=== PATIENT | female | born 1990 | race Caucasian/White ===

== ENCOUNTER 2016-09-10 10:00 | Inpatient (IN) ==
[2016-09-10] MEDS ORDERED: Metoclopramide 10 MG/2 ML VIAL IVP PRN (10:22)
[2016-09-10] MEDS ORDERED: Famotidine 20 MG/2 ML VIAL IVP PRN (10:22)
[2016-09-10] MEDS ORDERED: Ondansetron 4 MG/2 ML VIAL IVP PRN ×2 (10:22→11:58)
[2016-09-10] MEDS ORDERED: Naloxone 0.4 MG/ML INJ IVP PRN ×2 (10:22→11:58)
[2016-09-10 10:51] LABS: Basophils % 0.1 %; Eosinophils # 0.1 K/mcL (0.0-0.6); Eosinophils % 0.3 %; Hematocrit 32.1 % (35.3-44.9); Hemoglobin 10.4 g/dL (11.5-15.4); Immature Granulocytes % 0.5 % (0-4); Immature Platelets 2.6 % (1.1-6.1); Lymphocytes # 1.7 K/mcL (0.6-4.6); Lymphocytes % 10.1 %; Mean Corpuscular HGB Conc 32.4 g/dL (31.6-35.5); Mean Corpuscular Hemoglobin 27.8 pg (28.0-33.3); Mean Corpuscular Volume 85.8 fL (83.0-100.0); Mean Platelet Volume 9.2 fL (9.4-12.4); Monocytes # 0.8 K/mcL (0.0-1.3); Monocytes % 4.4 %; Neutrophils # 14.5 K/mcL (1.6-8.9); Platelet Count 347 K/mcL (140-400); Red Blood Count 3.74 M/mcL (3.82-4.97); Red Cell Distribution Width 13.8 % (11.5-14.5); Segmented Neutrophils % 84.6 %
[2016-09-10] MEDS ORDERED: Ringers Solution, Lactated 1,000 ML ONE (10:56)
[2016-09-10] MEDS: Ringers Solution, Lactated 1,000 ML IVC SCH ×2 (11:00→17:09)
[2016-09-10] MEDS: Oxytocin 20 units/ LR 1000 mL 20 UNIT/1,000 ML BAG IVC SCH ×2 (11:01→20:05)
[2016-09-10] MEDS ORDERED: *HR* FentaNYL (PF) 100 MCG/2 ML VIAL EP ONE (11:58)
[2016-09-10] MEDS ORDERED: EPHEDrine 50 MG/ML VIAL IVP PRN (11:58)
[2016-09-10] MEDS ORDERED: Bupivacaine-MPF 0.25% 10 ML VIAL EP ONE (11:58)
--- NOTE | 2016-09-10 11:59 | OB/GYN History & Physical ---
Date of Encounter: 09/10/16 Time of Encounter: 11:43 Assessment and Plan (1) Elective induction of labor planned Current visit: Yes Status: Acute Admit for IOL. Pitocin for induction. Epidural when requested. SSE after epidural. AROM when able. Anticipate . (2) 39 weeks gestation of Current visit: Yes Status: Acute (3) Hx of herpes genitalis Current visit: Yes Status: Acute (4) Obesity affecting Current visit: Yes Status: Acute (5) Mitral valve prolapse Current visit: Yes Status: Acute History of Present Illness Chief complaint: IOL HPI: Ms. Pop is a 25 year old female presenting for elective IOL at 39 weeks and 2 days. This has been complicated by obesity, mitral valve prolapse, THC use, and hx of HSV. She denies sores or tingling suggestive of HSV outbreak. Good FM. No complaints today. Past Med Surg Social Fam HX - Past Medical History Medical history: non-contributory Psychiatric history: no psych history - Past Surgical History Surgical History: no surgical history - Social History Smoking Status: Current every day smoker Smokeless Tobacco Status: No Alcohol use: none Drug use: none - Family History Mother History Unknown: Yes Family Member Ethnicity: Non- Living Status: Still Living Obstetrical History - Pregnancies : 4 Para: 2 Ab's: 1 Livin Medications and Allergies Albuterol Sulfate [Albuterol Inhaler] 2 puff IH QID 2 Days 07/24/15 [Rx] Azithromycin [Azithromycin 6-Tab Pack] 250 mg PO DAILY #6 tab 07/24/15 [Rx] GuaiFENesin/Codeine [Robitussin w/Codeine] 5 ml PO Q6HR PRN #120 ml 07/24/15 [Rx ] MethylPREDNISolone [Medrol] 4 mg PO DAILY 6 Days 07/24/15 [Rx] Naproxen [Naprosyn] 500 mg PO BID 3 Days 07/24/15 [Rx] Allergies No Known Allergies Allergy (Verified 07/24/15 10:19) Review of System OB All systems PM: reviewed and no additional remarkable complaints except as stated Exam - Constitutional Constitutional: well developed, well nourished, no acute distress, obese - HEENT HEENT: Mucus Membranes Moist - Lungs Respiratory exam: CTAB - Cardiovascular Cardiovascular exam: RRR, +S1, +S2 - Abdomen Abdomen: Present: gravid, non tender - Extremities Extremities exam: normal inspection - Vulva Vulva: bilateral: normal - Vagina Vagina: Present: normal moisture - Cervix Dilation: 4 (4-5 per RN) - Uterus Uterus exam: Present: normal size (EFW 8 lbs by cesar) - Anus/Rectum Anus/Rectum: Present: normal perianal skin - Comments Comments: Will confirm no lesions with SSE once epidural placed and prior to ROM. Results Result Diagrams: 09/10/16 10:40 Abnormal lab results WBC 17.2 K/mcL (4.3-11.1) H 09/10/16 10:40 RBC 3.74 M/mcL (3.82-4.97) L 09/10/16 10:40 Hgb 10.4 g/dL (11.5-15.4) L 09/10/16 10:40 Hct 32.1 % (35.3-44.9) L 09/10/16 10:40 MCH 27.8 pg (28.0-33.3) L 09/10/16 10:40 MPV 9.2 fL (9.4-12.4) L 09/10/16 10:40 Neutrophils # 14.5 K/mcL (1.6-8.9) H 09/10/16 10:40 All other labs normal. - VTE Reasons for not Prescribing Prophylaxis: Treatment not Indicated - Low risk for VTE
[2016-09-10] MEDS ORDERED: Epidural Premix (fent/bupiv) 110 ML EP SCH (12:00)
--- NOTE | 2016-09-10 12:02 | Anesthesia Evaluation PreOp ---
Date of Encounter: 09/10/16 Time of Encounter: 12:00 - Past History Planned Operation: ROGER Cardiac History: Other (Mitral valve prolapse with systolic murmur. Otherwise asymptomatic) Pulmonary History: Former smoker (1/2 pk/day x 2 years, quit 2 months ago) CHERRY GROWER History: Denies Any Significant HX Other Medical History: Denies Any Significant HX Anesthesia History: No Prior Anesthetic Complications, Past Anesthesia ( tonsillectomy) : Yes Alcohol Use: none Drug use: none Medications and Allergies Albuterol Sulfate [Albuterol Inhaler] 2 puff IH QID 2 Days 07/24/15 [Rx] Azithromycin [Azithromycin 6-Tab Pack] 250 mg PO DAILY #6 tab 07/24/15 [Rx] GuaiFENesin/Codeine [Robitussin w/Codeine] 5 ml PO Q6HR PRN #120 ml 07/24/15 [Rx ] MethylPREDNISolone [Medrol] 4 mg PO DAILY 6 Days 07/24/15 [Rx] Naproxen [Naprosyn] 500 mg PO BID 3 Days 07/24/15 [Rx] Allergies No Known Allergies Allergy (Verified 07/24/15 10:19) - Meds/Allergy Pre-op Review Medications Reviewed: Yes Allergies Reviewed: Yes Beta Blockers on Current Med List: No Anesthesia Results - Labs 09/10/16 10:40 Anesthesia Exam BP 119/58 R14 P 100 T 97.3 Height: 5"8" Weight: 116.9kg NPO (# of Hours): 3 Pain Scale: 0 Pain Scale Used: Numeric (1 - 10) - HEENT Pupil (Motor): Pupils equal Mallampati: II Teeth: Normal Oral Opening: Greater than 3 - CHERRY GROWER CHERRY GROWER Motor: Normal RUE, Normal LUE, Normal RLE, Normal LLE, Normal Face CHERRY GROWER Sensory: Normal: RUE, LUE, RLE, LLE, Face - Cardiac Rhythm: Regular Murmur: Systolic JVD: No Carotid Bruit: No - Pulmonary Breath Sounds: bilateral Clear Respiratory Effort: Symmetrical Anesthesia Assess/Plan ASA Score: 2 Modified [place] Scale for Level of Consciousness: Cooperative, oriented, and tranquil Anesthetic Plan: Regional Autologous Blood: No Monitoring Plan: Standard Monitors Recovery Plan: Other
[2016-09-10] MEDS ORDERED: Bupivacaine-MPF 0.25% 10 ML VIAL ONE (12:17)
[2016-09-10] MEDS ORDERED: *HR* FentaNYL (PF) 100 MCG/2 ML VIAL ONE (12:17)
[2016-09-10] MEDS ORDERED: Epidural Premix (fent/bupiv) 110 ML EP ONE (12:17)
--- NOTE | 2016-09-10 14:35 | OB Labor Progress Note ---
Date of Encounter: 09/10/16 Time of Encounter: 14:33 Labor Progress Note - Subjective Subjective: Pt comfortable with epidural. - Cervix Cervix: 5/80/-1 - Heart Tones Heart Tones: Category I - [place]: irregular - Interventions Interventions: SSE confirms no HSV lesions. AROM for large amount clear fluid. IUPC placed. - Plan Plan: Continue to titrate pitocin for adequate labor. Anticipate .
--- NOTE | 2016-09-10 15:04 | Anesthesia Procedures ---
Date of Encounter: 09/10/16 Time of Encounter: 13:45 Procedures: Anesthesia - Epidural/Spinal Patient ID/Chart reviewed: Yes Patient examined: Yes OB Eval: Gestational age: 39 OB Eval: : 4 OB Eval: Hx Para: 2 OB Eval: Dilated at (cm): 4 OB Eval: Contractions: Non-stressed pattern Consent Obtained: Yes Supplemental Oxygen: None/Room Air Site Prep: Aseptic Technique, Sterile prep and drape, Povidone-Iodine 1% Patient position: upright Local Anesthetic: Lidocaine 1% Amount of Local Anesthetic used: 3 Touhy Needle Gauge: 18 Touhy Needle Depth (cm): 7 Catheter Depth at Skin (cm): 16 Test Dose (1.5% Lido + Epi): Volume given (mls): 3 Test Dose Result: Negative Loading Dose: 0.25% Marcaine (mls): 10 Loading Dose: Fentanyl (mcg): 100 Loading Dose Administered: Thru Catheter Infusion Med: 0.125% Bupivacaine w/ 2 mcg/ml Fentanyl Infusion Rate (mls/hr): [address]: Tegaderm, Tape Interspace Used: L4-L5 Loss of Resistance (JULIA): Yes Blood: No CSF: No Paresthesia: No Procedure: ROGER placed in upright position 1st pass without any immediate noted complications. VSS and FHT stable throughout. Vitals + FHT's: 1345 BP 117/62 P 85 R 14 1416 BP 107/51 P 101 R 14 FHT 130s
--- NOTE | 2016-09-10 16:50 | OB Labor Progress Note ---
Date of Encounter: 09/10/16 Time of Encounter: 16:48 Labor Progress Note - Subjective Subjective: Patient resting on Left side. Pitocin at 10 millunits. Patient reports intermittent pressure. - Cervix Cervix: 6cm per RN - Heart Tones Heart Tones: 115 bpm moderate variability +15x15 accels no decels noted. - [place]: 2-3 min apart - Interventions Interventions: SVE per RN - Plan Plan: Continue labor management.
--- NOTE | 2016-09-10 18:02 | OB/GYN Procedure Note ---
Delivery - Delivery Date: 09/10/16 Provider: Audrey Murdock Intrapartum events: none Delivery induction: AROM, oxytocin Delivery monitor: external FHT, external uterine, internal uterine Anesthesia: epidural Estimated Blood Loss: 200 - (s) A Delivery Date: 09/10/16 Delivery Time: 17:33 Presentation: vertex Position: VINCENZO Route of delivery: Gender: Male Viability: Viable Pounds: 8 Ounces: 13 Weight Gram: 3985 kg at 1 minute: 5 at 5 mins: 9 at 10 mins: 9 Shoulder Dystocia: encountered Shoulder Dystocia Maneuvers: Annette maneuver, suprapubic pressure Shoulder dystocia time elapsed: 45 Specimens collected: cord blood Cord: nuchal cord (x2), 3 umbilical vessels, nuchal reduced - Repair Episiotomy: none Laceration Description: Superficial (perineal ) - Complications Delivery complications: none - Disposition Mom disposition: stable in LDR [place] disposition: stable in LDR - Comments Comments: Called to LDR patient reports she needs to push. Patient placed in stirrups and perineum was prepped. Patient began to push with contractions head presented in FERNANDO and rotated to OP and back to VINCENZO. Tight nuchal reduced x2. Patient unable to push out shoulders at this time. Patient placed in Annette without success so RN proceeded with Suprapubic. Shoulder delivered. placed on maternal abdomen. Cord was clamped and cut. Infant taken to warmer for assessment. There was no interventions needed for . Perineum had a superficial laceration that was hemastatic and did not require repair. returned to mother for skin to skin. Both mother and infant are stable in recovery.
[2016-09-10] MEDS ORDERED: Acetaminophen 325 MG TABLET PO PRN (22:23)
[2016-09-10] MEDS ORDERED: Oxytocin 20 units/ LR 1000 mL 20 UNIT/1,000 ML BAG IVC ONE (22:23)
[2016-09-10] MEDS ORDERED: Lanolin 7 G OINT...G. TP PRN (22:23)
[2016-09-10] MEDS ORDERED: Oxytocin 20 units/ LR 1000 mL 20 UNIT/1,000 ML BAG IV SCH (22:23)
[2016-09-10] MEDS ORDERED: *HR* HYDROcodone/Acet 5/325 mg TABLET PO PRN (22:23)
[2016-09-11] MEDS: Ibuprofen 600 MG TABLET PO PRN ×2 (05:53→13:17)
[2016-09-11] MEDS ORDERED: Prenatal Vit/FA 1 EACH TABLET PO SCH (09:00)
--- NOTE | 2016-09-11 13:37 | Discharge Summary ---
Date of Encounter: 09/11/16 Time of Encounter: 13:34 - Discharge Diagnosis (1) Hx of herpes genitalis Priority: Secondary Status: Acute (2) Obesity affecting Priority: Secondary Status: Acute (3) Mitral valve prolapse Priority: Secondary Status: Acute (4) (normal spontaneous vaginal delivery) Priority: Primary Status: Acute Comments: Pt meeting milestones. - Discharge Medications Prescriptions: Ibuprofen [Motrin] 600 mg PO Q6HR PRN #60 tablet PRN Reason: Cramping Breast Pump [BREAST PUMP] 1 each .ROUTE AD #1 each Docusate [Colace] 100 mg PO BID #60 capsule Home Medications: Albuterol Sulfate [Albuterol Inhaler] 2 puff IH QID 2 Days 07/24/15 [Rx] Azithromycin [Azithromycin 6-Tab Pack] 250 mg PO DAILY #6 tab 07/24/15 [Rx] Breast Pump [BREAST PUMP] 1 each .ROUTE AD #1 each 09/11/16 [Rx] Docusate [Colace] 100 mg PO BID #60 capsule 09/11/16 [Rx] Ibuprofen [Motrin] 600 mg PO Q6HR PRN #60 tablet 09/11/16 [Rx] Lanolin [Lansinoh] 1 appl TP TID PRN #0 oint...g. 09/11/16 [Rx] Vit/FA 1 each PO DAILY tablet 09/11/16 [Rx] Allergies/Adverse Reactions: Allergies No Known Allergies Allergy (Verified 07/24/15 10:19) Data Procedures and tests throughout hospitalization: Laboratory Tests 09/10/16 10:40 WBC 17.2 H RBC 3.74 L Hgb 10.4 L Hct 32.1 L MCV 85.8 MCH 27.8 L MCHC 32.4 RDW 13.8 Plt Count 347 MPV 9.2 L Immature Gran % 0.5 Seg Neutrophils % 84.6 Lymphocytes % 10.1 Monocytes % 4.4 Eosinophils % 0.3 Basophils % 0.1 Neutrophils # 14.5 H Lymphocytes # 1.7 Monocytes # 0.8 Eosinophils # 0.1 Basophils # 0.0 Immature Plt Fraction 2.6 Date of admission: 09/10/16 10:08 Primary care physician: PCP NO Consults: 09/10/16 22:23 Consult to Maintenance Specialist [CONS] Routine Comment: Vaginal delivery, consult needed Consult to Manager Therapy [CONS] Routine Reason for SW Consult: cord stat Discharging clinician: Karen Ambriz Anticipated date of discharge: 09/11/16 - Patient Status Disposition: Home, Self-Care Condition: Good Functional capacity at discharge: independent ambulation Overall status at discharge: patient is progressing back to baseline - Discharge Instructions Follow Up With: NO,PCP [Primary Care Provider] - Audrey Murdock, CNM [Advanced Practice Nurse] - - Diet and Activity Activity: increase activity as tolerated Diet: advance to your usual diet Hospital Course Reason for admission: induction of labor Delivery: Episiotomy: none Laceration: none Other procedures: none complications: none Discharge diagnosis: IUP at term delivered baby: male Hospital course: - Delivery Date: 09/10/16 Provider: Audrey Murdock Intrapartum events: none Delivery induction: AROM, oxytocin Delivery monitor: external FHT, external uterine, internal uterine Anesthesia: epidural Estimated Blood Loss: 200 - (s) Infant A Infant Delivery Date: 09/10/16 Infant Delivery Time: 17:33 Presentation: vertex Position: VINCENZO Route of delivery: Gender: Male Viability: Viable Pounds: 8 Ounces: 13 Weight Gram: 3985 kg at 1 minute: 5 at 5 mins: 9 at 10 mins: 9 Shoulder Dystocia: encountered Shoulder Dystocia Maneuvers: Annette maneuver, suprapubic pressure Shoulder dystocia time elapsed: 45 Specimens collected: cord blood Cord: nuchal cord (x2), 3 umbilical vessels, nuchal reduced - Repair Episiotomy: none Laceration Description: Superficial (perineal ) - Complications Delivery complications: none - Disposition Mom disposition: home PPD#1 [place] disposition: in nursery for observation x 3 days, . Time Attestation: Total time spent providing and/or coordinating discharge services: Time Spent: Less than 30 minutes Exam - Constitutional Vitals: Temp Pulse Resp BP Pulse Ox 98.7 F 77 18 114/68 95 09/11/16 08:01 09/11/16 08:01 09/11/16 08:01 09/11/16 08:01 09/11/16 08:01 General appearance IM: A&O X 3, pleasant, no acute distress - Respiratory Respiratory exam: Present: CTAB - Cardiovascular Cardiovascular exam IM: Present: RRR, +S1, +S2 - GI/Abdominal GI/Abdominal exam IM: soft - Rectal Rectal exam: deferred - Uterine Tone: Firm Uterus Position: At Umbilicus - Extremities Exam Extremities exam IM: Present: normal inspection, pedal edema (mild) - Neurological Exam Neurological exam: normal gait, oriented X3 - Psychiatric Additional comments: reports good mood
[2016-09-11 15:37] VITALS: BP 101/54
== END 2016-09-11 17:20 | disposition home or self-care (01) | DRG 560 ==
LOC: 1NENULAB 10:08 → 1NENUOBS 21:03
PROVIDERS: ADMIT Advanced Practice Midwife; ATTEND Advanced Practice Midwife

== ENCOUNTER 2016-12-15 09:47 | Observation (INO) ==
[2016-12-15] MEDS ORDERED: 0.9 % Sodium Chloride 1,000 ML IVC ONE (11:13)
[2016-12-15] MEDS ORDERED: Ondansetron 4 MG/2 ML VIAL IVP ONE (11:13)
[2016-12-15] MEDS ORDERED: Ketorolac 30 MG/ML VIAL IVP ONE (11:13)
--- NOTE | 2016-12-15 11:16 | Emergency Department Note ---
Disposition Clinical Impression: Acute cholecystitis Disposition: Admitted As Inpatient Condition: Fair Referrals: NO,PCP [Primary Care Provider] - Forms: Work/School Release, ED Satisfaction Letter Time of Disposition: 12:52 Abdominal Pain HPI - General Chief Complaint: ED Abdominal Pain Stated Complaint: RUQ Pain Time Seen by Provider: 12/15/16 11:08 Source: patient Limitations: no limitations Nursing Notes Reviewed: Yes Vital Signs Reviewed: Yes - History of Present Illness HPI Narrative: Patient emergency department with right-sided abdominal pain. Onset 1 week ago. She describes the pain as being dull but it became sharp and it sounded 10 last PM. Unaffected by food. No vomiting or change in bowel habits. No fever. Pt Subjective Complaint: abdominal pain Pain Scale: 9 Quality: stabbing - Related Data Previous Rx's Medication Instructions Recorded Albuterol Sulfate [Albuterol 2 puff IH QID 2 Days 07/24/15 Inhaler] Azithromycin [Azithromycin 6-Tab 250 mg PO DAILY #6 tab 07/24/15 Pack] Breast Pump [BREAST PUMP] 1 each .ROUTE AD #1 each 09/11/16 Docusate [Colace] 100 mg PO BID #60 capsule 09/11/16 Ibuprofen [Motrin] 600 mg PO Q6HR PRN #60 tablet 09/11/16 Lanolin [Lansinoh] 1 appl TP TID PRN #0 oint...g. 09/11/16 Vit/FA 1 each PO DAILY tablet 09/11/16 Allergies Allergy/AdvReac Type Severity Reaction Status Date / Time No Known Allergies Allergy Verified 12/15/16 09:52 All systems ED: reviewed and negative except as stated. Constitutional: Denies: fever Cardiovascular: Denies: chest pain Respiratory: Reports: other (Sedated deep breath). Denies: dyspnea Gastrointestinal: Reports: abdominal pain. Denies: nausea, vomiting, diarrhea Abdominal Pain PMH - Past Medical History Medical history: Reports: other Female Surgical History: Reports: Tonsillectomy ASSISTANT MEDIA PLANNER history: Reports: no ASSISTANT MEDIA PLANNER history Psychiatric history: Reports: anxiety - Social History Smoking status: Current every day smoker Alcohol use: Reports: none Drug use: Reports: none Physical Exam Patient with tenderness over the right flank and right upper abdomen. No tenderness over the ribs. No rash. No guarding. She is nontoxic appearing with stable vital signs. - General Limitations: no limitations General appearance: alert, in no apparent distress - Head Head exam: atraumatic - Eye Eye exam: Present: normal appearance, PERRL - ENT ENT exam: normal exam, normal oropharynx - Neck Neck exam: Present: normal inspection - Chest Chest inspection: Present: normal inspection - Respiratory Respiratory exam: Present: normal lung sounds bilaterally - Cardiovascular Cardiovascular exam: Present: regular rate, normal rhythm, normal heart sounds - Abdominal Exam Abdominal exam: Present: soft. Absent: tenderness - Neurological Exam Neurological exam: Present: alert, oriented X3 - Psychiatric Psychiatric exam: Present: normal affect - Skin Skin exam: Present: warm, dry, intact Course Course Narrative: Patient with tenderness under the rib cage. Lungs clear. No chest pain. She does have a Nexplanon. We will check a d-dimer and EKG. - Reevaluation(s) Reevaluation #1: Ultrasound shows likely an early cholecystitis. We will discuss with surgery. Patient is still uncomfortable. Ordering morphine. Time: 12:48 - Consultations Consultation #1: Dr Hill accepts. PT informed by myself to remain NPO Time: 12:52 Vital Signs Temperature 98.2 F 12/15/16 09:52 Pulse Rate 80 12/15/16 09:52 Respiratory Rate 18 12/15/16 09:52 Blood Pressure 116/67 12/15/16 09:52 O2 Sat by Pulse Oximetry 98 12/15/16 09:52 Temperature 98.2 F 12/15/16 09:52 Pulse Rate 80 12/15/16 09:52 Respiratory Rate 18 12/15/16 09:52 Blood Pressure 116/67 12/15/16 09:52 O2 Sat by Pulse Oximetry 98 12/15/16 09:52 Oxygen Delivery Oxygen Delivery Room Air Abdominal Pain - Lab Data Result diagrams: 12/15/16 11:22 12/15/16 11:22 Lab Results 12/15/16 12/15/16 Range/Units 11:22 11:22 WBC 14.9 H (4.3-11.1) K/mcL RBC 3.73 L (3.82-4.97) M/mcL Hgb 10.3 L (11.5-15.4) g/dL Hct 32.1 L (35.3-44.9) % MCV 86.1 (83.0-100.0) fL MCH 27.6 L (28.0-33.3) pg MCHC 32.1 (31.6-35.5) g/dL RDW 14.6 H (11.5-14.5) % Plt Count 350 (140-400) K/mcL MPV 8.3 L (9.4-12.4) fL Immature Gran % 0.4 (0-4) % Seg Neutrophils % 80.9 % Lymphocytes % 12.4 % Monocytes % 5.0 % Eosinophils % 1.1 % Basophils % 0.2 % Neutrophils # 12.0 H (1.6-8.9) K/mcL Lymphocytes # 1.9 (0.6-4.6) K/mcL Monocytes # 0.7 (0.0-1.3) K/mcL Eosinophils # 0.2 (0.0-0.6) K/mcL Basophils # 0.0 (0.0-0.2) K/mcL Sodium 138 (136-145) mEq/L Potassium 3.9 (3.5-4.5) mEq/L Chloride 107 (98-109) mEq/L Carbon Dioxide 24 (19-29) mEq/L BUN 13 (7-20) mg/dL Creatinine 0.73 (0.57-1.11) mg/dL Est GFR ( Amer) > 60 (> 60) Est GFR (Non-Af Amer) > 60 (> 60) BUN/Creatinine Ratio 18 (6-26) Glucose 93 (70-99) mg/dL Calculated Osmolality 286 (280-300) Calcium 8.8 (8.6-10.8) mg/dL Total Bilirubin 0.2 (0.2-1.2) mg/dL Direct Bilirubin 0.1 (0.0-0.5) mg/dL Indirect Bilirubin 0.1 (0.0-1.2) mg/dL AST 11 (5-34) Units/L ALT 17 (0-55) Units/L Alkaline Phosphatase 86 (38-126) Units/L Serum Total Protein 6.4 (6.0-8.3) g/dL Albumin 3.1 L (3.5-5.0) g/dL Globulin 3.3 (2.4-3.5) g/dL Albumin/Globulin Ratio 0.9 L (1.1-2.2) Amylase 42 (25-125) Units/L Lipase 9 (8-78) Units/L - EKG Data EKG attestation: Yes I reviewed and interpreted this EKG. EKG shows normal: sinus rhythm, axis, intervals, QRS complexes, ST-T waves
[2016-12-15 11:31] LABS: Basophils % 0.2 %; Eosinophils # 0.2 K/mcL (0.0-0.6); Eosinophils % 1.1 %; Hematocrit 32.1 % (35.3-44.9); Hemoglobin 10.3 g/dL (11.5-15.4); Immature Granulocytes % 0.4 % (0-4); Lymphocytes # 1.9 K/mcL (0.6-4.6); Lymphocytes % 12.4 %; Mean Corpuscular HGB Conc 32.1 g/dL (31.6-35.5); Mean Corpuscular Hemoglobin 27.6 pg (28.0-33.3); Mean Corpuscular Volume 86.1 fL (83.0-100.0); Mean Platelet Volume 8.3 fL (9.4-12.4); Monocytes # 0.7 K/mcL (0.0-1.3); Platelet Count 350 K/mcL (140-400); Red Blood Count 3.73 M/mcL (3.82-4.97); Red Cell Distribution Width 14.6 % (11.5-14.5); Segmented Neutrophils % 80.9 %
[2016-12-15 11:46] LABS: Alanine Aminotransferase 17 Units/L (0-55); Albumin 3.1 g/dL (3.5-5.0); Albumin/Globulin Ratio 0.9 (1.1-2.2); Alkaline Phosphatase 86 Units/L (38-126); Amylase 42 Units/L (25-125); Aspartate Amino Transferase 11 Units/L (5-34); BUN/Creatinine Ratio 18 (6-26); Bilirubin,Direct 0.1 mg/dL (0.0-0.5); Bilirubin,Indirect 0.1 mg/dL (0.0-1.2); Bilirubin,Total 0.2 mg/dL (0.2-1.2); Blood Urea Nitrogen 13 mg/dL (7-20); Calcium 8.8 mg/dL (8.6-10.8); Carbon Dioxide 24 mEq/L (19-29); Chloride 107 mEq/L (98-109); Globulin 3.3 g/dL (2.4-3.5); Glucose 93 mg/dL (70-99); Lipase 9 Units/L (8-78); Osmolality,Calculated 286 (280-300); Potassium 3.9 mEq/L (3.5-4.5); Sodium 138 mEq/L (136-145); Total Protein 6.4 g/dL (6.0-8.3); eGFR For African Americans > 60 (> 60); eGFR For Non-African Americans > 60 (> 60)
[2016-12-15] MEDS ORDERED: Ampicillin/Sulbactam 3,000 MG in 0.9 % Sodium Chloride Mini Bag 100 ML IVPB ONE (12:45)
[2016-12-15] MEDS ORDERED: *HR* Morphine 2 MG/ML SYRINGE IVP ONE (12:47)
[2016-12-15 13:17] LABS: Bilirubin,Urine Negative (Negative); Blood,Urine Negative (Negative); Clarity,Urine Clear (Clear); Color,Urine Yellow (Yellow); Glucose,Urine (UA) Normal (Normal); Ketones,Urine Negative (Negative); Leukocyte Esterase,Urine Negative (Negative); Nitrite,Urine Negative (Negative); Protein,Urine Trace mg/dL (Neg-Trace); Specific Gravity,Urine > 1.030 (1.010-1.025); Urobilinogen,Urine Normal (Normal)
[2016-12-15 13:18] LABS: Bacteria,Urine None Seen per hpf (None-Few); Hyaline Casts,Urine None Seen per lpf (None-Few); RBC,Urine 0-3 per hpf (0-3); Squamous Epithelial Cell,Urine Many per lpf (None-Few)
[2016-12-15] MEDS ORDERED: *HR* Promethazine 25 MG/ML VIAL IVP PRN ×3 (13:29→21:33)
[2016-12-15] MEDS ORDERED: Naloxone 0.4 MG/ML INJ IVP PRN ×2 (13:29→21:33)
[2016-12-15] MEDS ORDERED: Ondansetron 4 MG/2 ML VIAL IVP PRN ×2 (13:29→21:33)
[2016-12-15] MEDS ORDERED: *HR* Morphine 2 MG/ML SYRINGE IVP PRN ×2 (13:29→21:33)
[2016-12-15] MEDS ORDERED: 0.9 % Sodium Chloride 1,000 ML IVC SCH ×2 (13:30→21:33)
--- NOTE | 2016-12-15 14:18 | General Surg History&Physical ---
<Idalmis Sampson - Last Filed: 12/15/16 16:24> Date of Encounter: 12/15/16 Time of Encounter: 14:17 Assessment and Plan (1) Acute cholecystitis Current Visit: Yes Status: Acute Patient with right upper quadrant abdominal pain that radiates up to the chest and down to the RLQ. It is worsened with deep breaths and movement. Gallbladder ultrasound: Multiple shadowing gallstones within the gallbladder, with mild gallbladder wall thickening evident. Positive sonographic Carreno's sign during the study. Findings suggestive of acute cholecystitis WBC 14.9 with Left Shift, 12 Patient will have laparoscopic cholecystectomy today Plan: -Keep NPO for surgery today -Pain control, supportive care -IVF -Mefoxin 2mg Q8Hr -Monitor VS and I/Os -AM labs The assessment and plan as outlined above was discussed with the patient and/or family members who expressed understanding and agreement. All questions were answered. History of Present Illness Chief complaint: Right upper quadrant abdominal pain HPI: Ms. Pop is a 26 year old female with a past medical history significant for mitral valve prolapse and tobacco use presented to the ER today complaining of right sided abdominal pain. She states that she had pain on the entire right side of her abdomen for 1 week, which was dull. Last night around 2200 the pain became sharp and was located to the RUQ under her ribs. It radiates up into her right chest and down the right side of her abdomen. It is worse with deep breaths, lying on her right side and movement which intensifies the pain and to a sharper pain. On arrival to the ER her pain was rated at 9\10 and has improved with pain medication. She states that she has had trouble with vaginal bleeding 4 weeks secondary to her nexplanon. She has had chills and has been dizzy, with alternating hot flashes and chills. She denies fever, nausea, vomiting, diarrhea, constipation, anorexia, headaches, chest pain, shortness of breath, cough, wheezing, dysuria. She has a past surgical history significant only for tonsillectomy at age 18. She denies any problems with anesthesia in the past, denies bleeding disorders and clotting disorders. She denies a family history of bleeding or clotting disorders. She currently smokes 3\4 - 1 PPD x3 years. Past Med Surg Social Fam HX - Past Medical History Attestation: Yes The following information was validated with the patient. Source: patient Medical history: valvular heart disease (MVP), other Psychiatric history: anxiety - Past Surgical History Surgical History: other (tonsilectomy age 18) - Social History Smoking Status: Current every day smoker Packs per day: .75-1PPD x3 years Smokeless Tobacco Status: No Alcohol use: none Drug use: none Occupational status: employed Current living situation: Home, With Family (3 children, all vaginal births without complication) Activity Level: Independent ambulation Recent Out of Country Travel Within the Last 8 Weeks: No Exposure or Possible Exposure to Illness During Travel: No - Family History Mother Age: 41 Family Member Ethnicity: Non- Living Status: Still Living Hx Family Respiratory Disorders: Yes (Asthma) Father Age: 40 Race: Family Member Ethnicity: Non- Living Status: Still Living Hx Family Respiratory Disorders: Yes (JOSE) Medications and Allergies Etonogestrel [Nexplanon] 68 mg ONCE 12/15/16 [History] Allergies No Known Allergies Allergy (Verified 12/15/16 13:18) Review of Systems All systems PM: A 10-system review of systems was performed and is negative for pertinent findings except as documented above in the HPI. - Constitutional chills, no anorexia, no excessive sweating, no fatigue, no fever(s), no headache (s), no night sweats, no weakness - EENT Nose, mouth and throat: dizziness, no headache(s), no nasal congestion, no nasal discharge, no sore throat - Cardiovascular no chest pain, no diaphoresis, no dyspnea, no leg edema, no palpitations, no syncope - Respiratory no cough, no dyspnea, no wheezing, no snoring - Gastrointestinal abdominal pain, bloating, no change in bowel habits, no constipation, no diarrhea, no hematemesis, no hematochezia, no melena, no nausea, no vomiting - Genitourinary Genitourinary: abnormal vaginal bleeding, menorrhagia, metrorrhagia, no dysuria Menstruation: cycle > 35 days, menses 8 or > days - Musculoskeletal no arthralgias, no muscle cramps, no muscle weakness - Integumentary no erythema, no rash - Neurological dizziness, no headache(s) - Psychiatric no anxiety, no depression - Hematologic/Lymphatic no easy bleeding General Surgery Exam Initial Vital Signs Temp Pulse Resp BP Pulse Ox 98.2 F 80 18 116/67 98 12/15/16 09:52 12/15/16 09:52 12/15/16 09:52 12/15/16 09:52 12/15/16 09:52 - General physical appearance well developed, well nourished, moderate distress, moderate pain - Eyes PERRL, normal ocular movement - ENT normal pinna, normal nares, normal mucosa, atraumatic, normocephalic - Neck no masses, trachea midline, no lymphadectomy, no venous distension - Respiratory normal expansion, normal respiratory effort, clear to percussion, clear to auscultation - Cardiovascular Cardiovascular exam: Present: RRR, 15, 16 - Abdomen Abdomen general surgery: Present: bowel sounds present, soft, tender. Absent: distended Abdominal Tenderness: Present: RUQ - Integumentary Integumentary general surgery: Present: warm and dry, no abnormal pigmentation - Neurologic Present: CN 2-12 grossly intact, normal coordination, normal sensation - Psychiatric Psychiatric general surgery: Present: appropriate, oriented to person, oriented to place, oriented to time, speech is normal, memory intact Results - Labs 12/15/16 11:22 12/15/16 11:22 Abnormal lab results WBC 14.9 K/mcL (4.3-11.1) H 12/15/16 11:22 RBC 3.73 M/mcL (3.82-4.97) L 12/15/16 11:22 Hgb 10.3 g/dL (11.5-15.4) L 12/15/16 11:22 Hct 32.1 % (35.3-44.9) L 12/15/16 11:22 MCH 27.6 pg (28.0-33.3) L 12/15/16 11:22 RDW 14.6 % (11.5-14.5) H 12/15/16 11:22 MPV 8.3 fL (9.4-12.4) L 12/15/16 11:22 Neutrophils # 12.0 K/mcL (1.6-8.9) H 12/15/16 11:22 Albumin 3.1 g/dL (3.5-5.0) L 12/15/16 11:22 Albumin/Globulin Ratio 0.9 (1.1-2.2) L 12/15/16 11:22 Ur Specific [place] > 1.030 (1.010-1.025) H 12/15/16 13:03 Urine Microscopic WBC 3-5 per hpf (0-3) H 12/15/16 13:03 Ur Squamous Epith Cells Many per lpf (None-Few) H 12/15/16 13:03 All other labs normal. - Imaging US - abdomen: report reviewed, image reviewed Additional studies: Gallbladder Ultrasound 12/15/16 11:13 IMPRESSION: 1. Findings are suggestive of acute cholecystitis. 2. Normal sonographic appearance of the liver, common bile duct, right kidney, and pancreas. D/ / Finesse Walden MD / Finesse Walden MD Interpreting Provider: Finesse Walden MD <Yola Hill - Last Filed: 12/15/16 18:39> Date of Encounter: 12/15/16 Assessment and Plan (1) Mitral valve prolapse Current Visit: No Status: Acute The assessment and plan as outlined above was discussed with the patient and/or family members who expressed understanding and agreement. All questions were answered. (2) Acute cholecystitis Current Visit: Yes Status: Acute The assessment and plan as outlined above was discussed with the patient and/or family members who expressed understanding and agreement. All questions were answered. discussed with patient her symptoms are consistent with acute cholecystitis, her wbc is elevated and will start on abx, will plan laparoscopic cholecystectomy, possible cholangiograms possible open, risks and benefits discussed and she wishes to proceed npo ivf pain control gi prophylaxis ambulate History of Present Illness HPI: Ms. Pop is a 26 year old female started having right sided abdominal pain - moderate, dull for the last week. Last night the pain became severe around 10 pm after having pizza for dinner. The pain didnt radiate, no nausea or emesis. No diarrhea. The pain was so sharp it was difficult and painful to take a deep breath. No fevers, chills or night sweats. Past Med Surg Social Fam HX - Past Medical History Source: patient Medical history: valvular heart disease (MVP) - Past Surgical History Surgical History: other (tonsillectomy) Review of Systems All systems PM: A 10-system review of systems was performed and is negative for pertinent findings except as documented above in the HPI. General Surgery Exam Initial Vital Signs Temp Pulse Resp BP Pulse Ox 98.2 F 80 18 116/67 98 12/15/16 09:52 12/15/16 09:52 12/15/16 09:52 12/15/16 09:52 12/15/16 09:52 - General physical appearance well developed, well nourished, no distress - Eyes PERRL, normal ocular movement - ENT normal mucosa, normocephalic - Abdomen Abdomen general surgery: Present: bowel sounds present, soft, tender (minimally RUQ no rebound or guarding) - Integumentary Integumentary general surgery: Present: warm and dry, no abnormal pigmentation. Absent: diaphoresis - Neurologic Present: CN 2-12 grossly intact - Musculoskeletal Present: normal gait - Psychiatric Psychiatric general surgery: Present: A&Ox3, speech is normal Results - Labs 12/15/16 11:22 12/15/16 11:22 Abnormal lab results WBC 14.9 K/mcL (4.3-11.1) H 12/15/16 11:22 RBC 3.73 M/mcL (3.82-4.97) L 12/15/16 11:22 Hgb 10.3 g/dL (11.5-15.4) L 12/15/16 11:22 Hct 32.1 % (35.3-44.9) L 12/15/16 11:22 MCH 27.6 pg (28.0-33.3) L 12/15/16 11:22 RDW 14.6 % (11.5-14.5) H 12/15/16 11:22 MPV 8.3 fL (9.4-12.4) L 12/15/16 11:22 Neutrophils # 12.0 K/mcL (1.6-8.9) H 12/15/16 11:22 Albumin 3.1 g/dL (3.5-5.0) L 12/15/16 11:22 Albumin/Globulin Ratio 0.9 (1.1-2.2) L 12/15/16 11:22 Ur Specific [place] > 1.030 (1.010-1.025) H 12/15/16 13:03 Urine Microscopic WBC 3-5 per hpf (0-3) H 12/15/16 13:03 Ur Squamous Epith Cells Many per lpf (None-Few) H 12/15/16 13:03 All other labs normal. - Imaging US - abdomen: report reviewed - Attending Attestation I examined this patient and my medical decision-making was reviewed with the HYBRID CORN BREEDER/PA/Advanced Practice Nurse/Resident Physician. I agree with the documented findings, disposition and treatment plan as described except to the extent set forth below.
--- NOTE | 2016-12-15 15:02 | Electrocardiograph Report ---
[place] [id number] Test Date: 2016-12-15 Pat Name: Sophia Pop Department: 104 Room: 3A35 Gender: F Child & Adolescent Psychiatrist: : 1990 Requested By: Caren See Order Number: [id number] Reading MD: Darrell Chavez MD Measurements Intervals [place] Rate: 54 P: -14 TX: 153 QRS: 38 QRSD: 116 T: 30 QT: 425 QTc: 410 Interpretive Statements SINUS BRADYCARDIA v2 signal loss Electronically Signed On 12-15-2016 15:00:59 EDT by Darrell Chavez MD
[2016-12-15] MEDS ORDERED: cefOXitin 2,000 MG in D5% in Water (Mini-Bag+) 100 ML IVPB SCH (16:00)
--- NOTE | 2016-12-15 16:47 | Anesthesia Evaluation PreOp ---
Date of Encounter: 12/15/16 Time of Encounter: 16:45 - Past History Planned Operation: Lap Cholecystectomy Cardiac History: Other (MVP asymptomatic) Pulmonary History: Smoker SANITARIAN History: Denies Any Significant HX Other Medical History: Other (Anxiety) Anesthesia History: No Prior Anesthetic Complications : No Test: Negative Alcohol Use: none Drug use: none Medications and Allergies Etonogestrel [Nexplanon] 68 mg ONCE 12/15/16 [History] Allergies No Known Allergies Allergy (Verified 12/15/16 13:18) - Meds/Allergy Pre-op Review Medications Reviewed: Yes Allergies Reviewed: Yes Beta Blockers on Current Med List: No Anesthesia Results - Labs 12/15/16 11:22 12/15/16 11:22 Laboratory Tests 12/15/16 12/15/16 11:22 11:22 Hgb 10.3 L Hct 32.1 L Plt Count 350 Sodium 138 Potassium 3.9 BUN 13 Creatinine 0.73 Anesthesia Exam O2 Sat Height 1.73 m Height 1.73 m Weight 99.564 kg Weight 99.337 kg O2 Sat by Pulse Oximetry 98 O2 Sat by Pulse Oximetry 98 O2 Sat by Pulse Oximetry 99 O2 Sat by Pulse Oximetry 98 Vital Signs Temp Pulse Resp BP Pulse Ox 98.2 F 80 18 116/67 98 12/15/16 09:52 12/15/16 09:52 12/15/16 09:52 12/15/16 09:52 12/15/16 09:52 Height: 5'8 Weight: 219 lbs NPO (# of Hours): MN Pain Scale: 0 - HEENT Pupil (Motor): Pupils equal, EOMI Mallampati: II Teeth: Normal Oral Opening: Greater than 3 - SANITARIAN LOC: Oriented SANITARIAN Motor: Normal RUE, Normal LUE, Normal RLE, Normal LLE, Normal Face SANITARIAN Sensory: Normal: RUE, LUE, RLE, LLE, Face - Cardiac Rhythm: Regular Murmur: None JVD: No Carotid Bruit: No - Pulmonary Breath Sounds: bilateral Clear Respiratory Effort: Symmetrical Anesthesia Assess/Plan ASA Score: 2 Modified Sreedhar Scale for Level of Consciousness: Cooperative, oriented, and tranquil Anesthetic Plan: General Monitoring Plan: Standard Monitors Recovery Plan: PACU (Discussed GA, agrees to proceed)
--- NOTE | 2016-12-15 19:16 | Discharge Summary ---
Date of Encounter: 12/15/16 Time of Encounter: 20:45 - Discharge Diagnosis (1) Mitral valve prolapse Priority: Secondary Status: Acute (2) Acute cholecystitis Priority: Primary Status: Acute - Discharge Medications Prescriptions: OxyCODONE/APAP 5/325 [Percocet 5/325 MG] 1 each PO Q4HR PRN #30 tablet PRN Reason: Pain Docusate [Colace] 100 mg PO BID #30 capsule Home Medications: Docusate [Colace] 100 mg PO BID #30 capsule 12/15/16 [Rx] Etonogestrel [Nexplanon] 68 mg ONCE 12/15/16 [History] OxyCODONE/APAP 5/325 [Percocet 5/325 MG] 1 each PO Q4HR PRN #30 tablet 12/15/16 [Rx] Allergies/Adverse Reactions: Allergies No Known Allergies Allergy (Verified 12/15/16 13:18) General Surgery Exam Initial Vital Signs Temp Pulse Resp BP Pulse Ox 98.2 F 80 18 116/67 98 12/15/16 09:52 12/15/16 09:52 12/15/16 09:52 12/15/16 09:52 12/15/16 09:52 - General physical appearance well developed, well nourished, no distress - Eyes PERRL, normal ocular movement - ENT normal mucosa, atraumatic, normocephalic - Neck trachea midline - Respiratory normal expansion, clear to auscultation - Cardiovascular Cardiovascular exam: Present: RRR - Abdomen Abdomen general surgery: Present: bowel sounds present, soft, tender ( appropriate post op tenderness) - Incision Incision: Present: clean and dry, intact - Integumentary Integumentary general surgery: Present: warm and dry, no abnormal pigmentation - Neurologic Present: CN 2-12 grossly intact - Musculoskeletal Present: normal gait - Psychiatric Psychiatric general surgery: Present: A&Ox3, speech is normal Date of admission: 12/15/16 13:07 Primary care physician: PCP ALIS Discharging clinician: Yola Hill Anticipated date of discharge: 12/15/16 - Patient Status Disposition: Home, Self-Care Condition: Good Overall status at discharge: patient is progressing back to baseline - Discharge Instructions Instructions: Laparoscopic Cholecystectomy (DC) Follow Up With: ALIS,PCP [Primary Care Provider] - Yola Hill MD [Partnered Physician] - (or Shiloh Ayala for a two week post op check) Additional Instructions: No lifting more than 20 pounds for 2 weeks. Okay to take a shower in 24 hours. No tub baths or pools for 1 week. Okay to ride in the car wearing a seatbelt and climb steps. No driving until off narcotics for 24 hours and able to react safely Remove Steri-Strips in 1 week if haven't already fallen off. - Diet and Activity Activity: increase activity as tolerated Diet: advance to your usual diet - Hospital Course Hospital course: Ms. Pop is a 26 year old female admitted with acute cholecystitis. She underwent an uncomplicated laparoscopic cholecystectomy. She was started on clears which she tolerated. Started on po pain medication. Was discharged home the evening of surgery per patient request, lfts were normal prior to surgery and cholelithiasis with some wall thickening no pericholecystic fluid and normal cbd, elevated wbc due to inflammation. She was discharged home in stable condition. - Time Spent with Patient Total time spent providing and/or coordinating discharge services: Labs on day of discharge: Labs from last 24 hours 12/15/16 17:34 POC Glucose 83
[2016-12-15] MEDS ORDERED: Albuterol 2.5 MG/3 ML NEBULIZER ONE (19:18)
[2016-12-15] MEDS ORDERED: *HR* FentaNYL (PF) 100 MCG/2 ML VIAL ONE ×2 (19:35→20:21)
[2016-12-15] MEDS ORDERED: *HR* Propofol 200 MG/20 ML VIAL IVP ONE (19:35)
[2016-12-15] MEDS ORDERED: Dexamethasone 4 MG/ML VIAL ONE (19:37)
[2016-12-15] MEDS ORDERED: Ondansetron 4 MG/2 ML VIAL ONE (19:37)
[2016-12-15] MEDS ORDERED: *HR* Rocuronium Bromide 50 MG/5 ML VIAL ONE (19:37)
[2016-12-15] MEDS ORDERED: Lidocaine -MPF 2% 2 ML VIAL ONE (19:37)
[2016-12-15] MEDS ORDERED: *HR* HYDROmorphone (PF) 1 MG/ML SYRINGE IVP PRN (19:55)
[2016-12-15] MEDS ORDERED: Ringers Solution, Lactated 1,000 ML IVC SCH (20:00)
[2016-12-15] MEDS ORDERED: Ketorolac 30 MG/ML VIAL ONE (20:10)
--- NOTE | 2016-12-15 20:49 | Operative Note ---
Date of procedure: 12/15/16 Pre-op diagnosis: acute cholecystitis Post-op diagnosis: same Procedure: Laparoscopic cholecystectomy Complications: none immediate Anesthesia: GETA, local Local Anesthetics: 0.5% Sensorcaine HCL SubQ (cc) (30) Surgeon: Yola Hill Multiple Coil Winder: Carol Ann Hartley Estimated blood loss (cc): 5 Specimen: gallbladder and contents Condition: stable Disposition: PACU Procedure in Detail: The patient was brought into the operating suite and placed supine on the operating table. Sign-in was performed and everyone was in agreement. Anesthesia was induced and patient was endotracheally intubated by anesthesia without incident and they also placed an OG tube. The abdomen was prepped and draped in the usual sterile fashion. A timeout was performed again everyone was in agreement. A supraumbilical incision was made through the skin into the subcutaneous tissue with an 11 blade. Towel clamps were placed on either side of the umbilicus for retraction. S retractors were used to dissect down to the anterior abdominal wall linea alba fascia. A Veress needle was placed through this incision and a water drop test confirmed placement and the abdomen was insufflated. The abdomen was entered with a 5 mm 0 degree laparoscope on a 5 mm X-yasmani trocar. The area and entry was visualized was no bleeding and no apparent bowel injury. A 5 mm subxiphoid port was placed under direct visualization after first incising the skin with an 11 blade. A right upper quadrant subcostal position midclavicular line 5 mm port was placed under direct visualization after first incising skin with 11 blade. The laparoscope was placed in this and we exchanged the supraumbilical port for a 12 mm port under direct visualization. The last 5 mm port was placed in the right upper quadrant subcostal position anterior axillary line after first incising the skin with an 11 blade. The patient was placed in steep reverse Trendelenburg left side down position. The dome of the gallbladder was grasped and retracted cephalad. The infundibulum was grasped and retracted laterally. Using the [place] we dissected out the cystic duct and cystic artery which was densely adherent to eachother. Two 5 mm hemoclips were placed distally on the cystic duct/artery one proximally and it was transected with curved scissors. The gallbladder was removed off the cystic plate with the Bovie. Any bleeding points were stopped with the Bovie. The gallbladder was placed in a laparoscopic Endo Catch bag and removed via the supraumbilical incision site. The inferior edge of the liver was bluntly retracted cephalad and the cystic plate was copiously irrigated with sterile saline. There was no bleeding or apparent bile leak from the cystic plate and the clips on the cystic artery and duct were intact. All irrigation was suctioned free from the abdomen. All insufflation was suctioned free from the abdomen and the ports removed. The abdominal wall at the supraumbilical incision site was closed with a 0 Vicryl [id number] stitch. 30 mL of 0.5% Marcaine was injected subcutaneously at the 4 port sites. The skin at the three 5 mm port sites were closed with 4-0 Monocryl interrupted subcuticular stitches. The skin at the supraumbilical incision site was closed with a 4-0 Monocryl running subcuticular stitch. Steri -Strips were applied to all wounds. The patient was awoken in the operating suite having tolerated the procedure well and were taken to PACU in stable condition after all lap and ensuring counts were correct at the end of the case.
--- NOTE | 2016-12-15 21:19 | Anesthesia Evaluation Post Op ---
Date of Encounter: 12/15/16 Time of Encounter: 21:18 - Vital Signs Vital Signs: Vital Signs/O2 Sat/Glucose, Most Current Temp Pulse Resp BP Pulse Ox 12/15/16 21:10 58 16 123/72 97 12/15/16 21:00 70 20 122/75 97 12/15/16 20:50 97.7 F 98 20 129/71 98 12/15/16 19:24 16 98 - Airway Airway: Non-obstructed - Cardiovascular Regular Rate - Mental Status Mental Status: Asleep with brisk response to light stimulation - Pain Pain Scale: 2 - Nausea Vomiting Nausea Vomiting: Not Present - Hydration Hydration: NPO - Discharge PostOp Status: Transfer Patient to floor
[2016-12-15] MEDS ORDERED: *HR* OxyCODONE/APAP 5/325 TABLET PO PRN (21:33)
[2016-12-16] MEDS ORDERED: cefOXitin 2,000 MG in D5% in Water (Mini-Bag+) 100 ML IVPB SCH
[2016-12-16 00:36] VITALS: BP 102/64
[2016-12-16] MEDS ORDERED: Pantoprazole 40 MG VIAL IVP SCH ×2 (09:00)
== END 2016-12-16 01:19 | disposition home or self-care (01) ==
LOC: 3ANU 09:47 → EMEROO 09:47 → 3ANU 13:12
PROVIDERS: ADMIT Surgery; ATTEND Surgery